=== PATIENT | female | born 1965 | race African-American/Black ===

== ENCOUNTER 2019-01-18 19:03 | Emergency (ER) | payer MEDICAID ==
[~2019-01-18] VITALS: Ht 162.6 cm; Wt 59.0 kg
[2019-01-18] MEDS ORDERED: IBUPROFEN 400MG TABLET PO ONE (20:15)
[2019-01-18 21:02] VITALS: BP 120/82
== END 2019-01-18 21:03 | disposition home or self-care (01) ==
LOC: ER 20:04
DX: S62.396A Other fracture of fifth metacarpal bone, right hand, initial encounter for closed fracture (principal); F17.200 Nicotine dependence, unspecified, uncomplicated; F12.10 Cannabis abuse, uncomplicated; W26.8XXA Contact with other sharp object(s), not elsewhere classified, initial encounter; Y93.89 Activity, other specified; Y92.89 Other specified places as the place of occurrence of the external cause; Y99.8 Other external cause status
CPT/HCPCS: 29125; 73130; 99283; 99406

== ENCOUNTER 2022-03-19 10:15 | Emergency (ER) | payer MEDICAID, OTHER ==
[~2022-03-19] VITALS: Ht 165.1 cm; Wt 60.0 kg
[2022-03-19 16:51] LABS: BASOPHILS % 0.6 % (0.0-2.0); EOSINOPHILS % 3.6 % (0.0-5.0); HEMATOCRIT. 43.1 % (36.0-48.0); HEMOGLOBIN. 14.8 g/dL (12.0-16.0); LYMPHOCYTES % 22.1 % (20.0-50.0); MEAN CORPUSCULAR HEMOGLOBIN 35.3 pg (28.0-32.0); MEAN CORPUSCULAR VOLUME 102.6 fL (81.0-99.0); MEAN PLATELET VOLUME 8.4 fl (7.4-10.4); MONOCYTES % 6.9 % (2.0-8.0); NEUTROPHILS % 66.8 % (40.0-76.0); PLATELET 294 x1000/uL (130-400); RED CELL DISTRIBUTION WIDTH 12.6 % (11.6-14.6)
[2022-03-19 16:54] LABS: CHLORIDE 101 mEq/L (98-107)
[2022-03-19 17:05] LABS: HCG SCREEN NEGATIVE
[2022-03-19 18:38] LABS: CLARITY URINE CLOUDY (CLEAR); COLOR URINE DARK YELLOW (YELLOW); KETONES URINE TRACE (NEGATIVE); LEUKOCYTE ESTERASE URINE 3+ (NEGATIVE); NITRITE URINE NEGATIVE (NEGATIVE); OCCULT BLOOD URINE NEGATIVE (NEGATIVE); PH URINE 5.5 (4.5-8.0); PROTEIN URINE NEGATIVE (NEGATIVE); SPECIFIC GRAVITY URINE 1.013 (1.005-1.030)
[2022-03-19] MEDS ORDERED: MORPHINE SULFATE 4 MG/ML CPJ (NOT FOR IM USE) IV STA (18:40)
[2022-03-19] MEDS ORDERED: ONDANSETRON HCL 4MG/2ML INJ IV STA (18:40)
[2022-03-19] MEDS ORDERED: SODIUM CHLORIDE 0.9% 1,000 ML IV ONE (18:45)
[2022-03-19] MEDS ORDERED: CEFTRIAXONE 1 G PREMIX 50 ML IV ONE (19:15)
[2022-03-19] MEDS ORDERED: SODIUM CHLORIDE 0.9% 1000ML BAG (SEPSIS BOLUS) IV ONE (19:15)
[2022-03-19] MEDS ORDERED: AZITHROMYCIN 500MG/250ML 250 ML IV ONE (19:15)
[2022-03-19] MEDS ORDERED: METRONIDAZOLE 500MG TABLET PO ONE (20:15)
[2022-03-19 20:27] LABS: PARTIAL THROMBOPLASTIN TIME 30.5 sec (23.4-31.0); PROTHROMBIN TIME 11.2 sec (9.6-11.0)
[2022-03-20 01:27] VITALS: BP 112/67
== END 2022-03-20 01:28 | disposition short-term general hospital (02) ==
LOC: ER 10:15 → CANBEDREQ 03-20 07:30
DX: A41.9 Sepsis, unspecified organism (principal); R10.13 Epigastric pain; R07.89 Other chest pain; N39.0 Urinary tract infection, site not specified; F12.10 Cannabis abuse, uncomplicated; Z20.822 Contact with and (suspected) exposure to COVID-19
CPT/HCPCS: 36415; 71045; 74176; 80053; 81003; 83605; 83690; 84484; 84703; 85025; 85610; 85730; 86850; 86900; 86901; 87040; 87086; 87426; 93005; 96361; 96365; 96368; 96375; 99285; C9803; J0696; J2270; J2405; J7030

== ENCOUNTER 2024-02-17 01:00 | Emergency (ER) | payer OTHER ==
[~2024-02-17] VITALS: Ht 170.2 cm; Wt 70.0 kg
[2024-02-17 01:02] VITALS: TEMP 98.3; O2SAT 98
[2024-02-17] MEDS ORDERED: ONDANSETRON HCL 4MG/2ML INJ IV STA (01:06)
[2024-02-17] MEDS ORDERED: MAGNESIUM/ALUMINUM HYDROXIDE/SIMETHICONE 30ML UDC PO STA (01:06)
[2024-02-17] MEDS ORDERED: PANTOPRAZOLE SODIUM 40 MG/VIAL IV STA (01:06)
[2024-02-17 01:35] LABS: HEMATOCRIT. 44.2 % (36.0-48.0); HEMOGLOBIN. 14.8 g/dL (12.0-16.0); MEAN CORPUSCULAR HEMOGLOBIN 31.8 pg (28.0-32.0); MEAN CORPUSCULAR HGB CONC 33.6 g/dL (31.0-37.0); MEAN CORPUSCULAR VOLUME 94.8 fL (81.0-99.0); MEAN PLATELET VOLUME 9.3 fl (7.4-10.4); PLATELET 216 x1000/uL (130-400); RED BLOOD CELL COUNT 4.66 mill/uL (4.2-5.4); RED CELL DISTRIBUTION WIDTH 13.8 % (11.6-14.6); WHITE BLOOD COUNT 10.7 x1000/uL (4.5-11.0)
[2024-02-17 01:37] LABS: DIFFERENTIAL COMMENT 1
[2024-02-17 02:35] LABS: CHLORIDE 109 mEq/L (98-107); POTASSIUM 4.3 mEq/L (3.5-5.1); SODIUM 142 mEq/L (136-145)
[2024-02-17 02:36] LABS: CARBON DIOXIDE 26 mEq/L (21-32)
[2024-02-17 02:37] LABS: CALCIUM 9.7 mg/dL (8.7-10.4)
[2024-02-17 02:41] LABS: CREATININE 0.8 mg/dL (0.6-1.0); GLUCOSE 148 mg/dL (70-105); UREA NITROGEN BLOOD 13 mg/dL (9-23)
[2024-02-17 02:43] LABS: AMYLASE 73 IU/L (30-118)
[2024-02-17 02:45] LABS: ETHANOL BLOOD < 10 mg/dL (<10)
[2024-02-17] MEDS ORDERED: ONDANSETRON HCL 4MG/2ML INJ IV NR (04:15)
[2024-02-17] MEDS ORDERED: PANTOPRAZOLE SODIUM 40 MG/VIAL IV NR (04:15)
[2024-02-17] MEDS ORDERED: MAGNESIUM/ALUMINUM HYDROXIDE/SIMETHICONE 30ML UDC PO NR (04:15)
[2024-02-17] MEDS: SODIUM CHLORIDE 0.9% 1,000 ML IV ONE (05:19)
[2024-02-17 05:29] LABS: PLATELET ESTIMATE NORMAL
[2024-02-17] MEDS ORDERED: IOHEXOL-300 100 ML BOTTLE ONE (06:00)
[2024-02-17] MEDS ORDERED: MORPHINE SULFATE 4 MG/ML INJ (FOR IV/IM USE) IV ONE (06:30)
[2024-02-17] MEDS ORDERED: ONDA4TAB50 MT (07:56)
[2024-02-17] MEDS ORDERED: OMEP40CA20 MT (07:56)
[2024-02-17 11:20] VITALS: BP 122/76; PULSE 70; RESP 16; O2SAT 99
== END 2024-02-17 11:22 | disposition home or self-care (01) ==
LOC: ER 01:21
DX: K85.90 Acute pancreatitis without necrosis or infection, unspecified (principal); F10.20 Alcohol dependence, uncomplicated; I10 Essential (primary) hypertension; F12.90 Cannabis use, unspecified, uncomplicated; Z79.899 Other long term (current) drug therapy; Y90.0 Blood alcohol level of less than 20 mg/100 ml
CPT/HCPCS: 80048; 80320; 82150; 83690; 85025; 85610; 36415; 74177; 93005; 96360; 99284; Q9967; J2405; J2470; J7030; Z7610; G0480

== ENCOUNTER 2024-11-08 19:27 | Emergency (ER) | payer OTHER ==
[~2024-11-08] VITALS: Ht 162.6 cm; Wt 69.0 kg
[~2024-11-08 19:27] MED LIST: OMEP40CA20 MT; ONDA4TAB50 MT
[2024-11-08 19:40] VITALS: O2SAT 100
[2024-11-08 19:58] VITALS: TEMP 37.1
[2024-11-08 21:13] LABS: BASOPHILS % 0.3 % (0.0-2.0); EOSINOPHILS % 0.8 % (0.0-5.0); HEMATOCRIT. 40.0 % (36.0-48.0); HEMOGLOBIN. 13.4 g/dL (12.0-16.0); LYMPHOCYTES % 16.8 % (20.0-50.0); MEAN PLATELET VOLUME 9.4 fl (7.4-10.4); MONOCYTES % 3.6 % (2.0-8.0); NEUTROPHILS % 78.5 % (40.0-76.0); PLATELET 217 x1000/uL (130-400); RED BLOOD CELL COUNT 4.42 mill/uL (4.2-5.4); RED CELL DISTRIBUTION WIDTH 15.5 % (11.6-14.6)
[2024-11-08 21:14] LABS: CLARITY URINE CLEAR (CLEAR); COLOR URINE YELLOW (YELLOW); GLUCOSE URINE NEGATIVE (NEGATIVE); KETONES URINE 3+ (NEGATIVE); NITRITE URINE NEGATIVE (NEGATIVE); OCCULT BLOOD URINE NEGATIVE (NEGATIVE); PH URINE 5.0 (4.5-8.0); PROTEIN URINE NEGATIVE (NEGATIVE); SPECIFIC GRAVITY URINE 1.023 (1.005-1.030)
[2024-11-08 21:15] LABS: LEUKOCYTE ESTERASE URINE 1+ (NEGATIVE); UROBILINOGEN URINE 1.0 E.U./dL (0.2-1.0)
[2024-11-08] MEDS: MORPHINE SULFATE 4 MG/ML INJ (FOR IV/IM USE) IV STA (21:21)
[2024-11-08] MEDS: ONDANSETRON HCL 4MG/2ML INJ IV STA (21:21)
[2024-11-08 21:22] LABS: BACTERIA URINE 1+; RBC URINE 0-2 /hpf (0-2); SQUAMOUS EPITHELIAL CELL URINE FEW /lpf (RARE/1+)
[2024-11-08 21:22] LABS: INR 1.1
[2024-11-08] MEDS: PANTOPRAZOLE SODIUM 40 MG/VIAL IV ONE (21:22)
[2024-11-08 21:26] LABS: CREATININE 0.7 mg/dL (0.6-1.0); UREA NITROGEN BLOOD 10 mg/dL (9-23)
[2024-11-08 21:27] LABS: TROPONIN I HIGH SENSITIVITY < 4 ng/L (3.0-34)
[2024-11-08 21:28] LABS: ASPARTATE AMINOTRANSFERASE 17 IU/L (<34); BILIRUBIN DIRECT 0.2 mg/dL (<=3.0); BILIRUBIN TOTAL 0.6 mg/dL (0.1-1.0); PROTEIN TOTAL 6.9 g/dL (6.0-8.3)
[2024-11-09] MEDS ORDERED: IOHEXOL-350 100 ML BOTTLE ONE (00:59)
[2024-11-09] MEDS ORDERED: MAG-55 MT (02:03)
[2024-11-09] MEDS ORDERED: OMEP40CA20 MT (02:03)
[2024-11-09 02:27] VITALS: BP 113/64; PULSE 70; RESP 18; O2SAT 96
[2024-11-09 12:37] LABS: *AMPHETAMINES SCREEN URINE NEGATIVE (NEGATIVE); *BARBITURATES SCREEN URINE NEGATIVE (NEGATIVE); *BENZODIAZEPINES SCREEN URINE NEGATIVE (NEGATIVE); *COCAINE SCREEN URINE NEGATIVE (NEGATIVE); CANNABINOID URINE SCREEN NEGATIVE (NEGATIVE); ECSTASY MDMA SCREEN URINE NEGATIVE (NEGATIVE); METHADONE URINE SCREEN NEGATIVE (NEGATIVE); OPIATES URINE SCREEN NEGATIVE (NEGATIVE); PHENCYCLIDINE URINE SCREEN NEGATIVE (NEGATIVE)
== END 2024-11-09 03:47 | disposition home or self-care (01) ==
LOC: ER 19:27
DX: K29.70 Gastritis, unspecified, without bleeding (principal); K86.2 Cyst of pancreas; R10.84 Generalized abdominal pain; I10 Essential (primary) hypertension; F17.200 Nicotine dependence, unspecified, uncomplicated; F12.90 Cannabis use, unspecified, uncomplicated; Z86.79 Personal history of other diseases of the circulatory system; Z79.899 Other long term (current) drug therapy
CPT/HCPCS: 80076; 80305; 80048; 81003; 83880; 83690; 85025; 85610; 84484; 36415; 74174; 71275; 93005; 96374; 96375; 99285; J2405; J2470; J2270; Z7610 ×3; Q9967; A4606

== ENCOUNTER 2025-02-14 12:13 | Emergency (ER) | payer OTHER ==
[~2025-02-14] VITALS: Ht 167.6 cm; Wt 75.0 kg
[~2025-02-14 12:13] MED LIST changes: +MAG-55 MT
[2025-02-14 12:16] VITALS: O2SAT 100
[2025-02-14] MEDS: ONDANSETRON 4MG ODT PO ONE ×2 (13:08→16:05)
[2025-02-14 14:21] LABS: BASOPHILS % 0.8 % (0.0-2.0); EOSINOPHILS % 0.2 % (0.0-5.0); HEMATOCRIT. 43.2 % (36.0-48.0); HEMOGLOBIN. 14.5 g/dL (12.0-16.0); LYMPHOCYTES % 14.5 % (20.0-50.0); MEAN PLATELET VOLUME 9.8 fl (7.4-10.4); MONOCYTES % 5.0 % (2.0-8.0); NEUTROPHILS % 79.5 % (40.0-76.0); PLATELET 256 x1000/uL (130-400); RED BLOOD CELL COUNT 4.56 mill/uL (4.2-5.4); RED CELL DISTRIBUTION WIDTH 13.3 % (11.6-14.6)
[2025-02-14 14:35] LABS: CREATININE 0.6 mg/dL (0.6-1.0); UREA NITROGEN BLOOD 6 mg/dL (9-23)
[2025-02-14 14:36] LABS: TROPONIN I HIGH SENSITIVITY 4 ng/L (3.0-34)
[2025-02-14 15:18] LABS: ASPARTATE AMINOTRANSFERASE 13 IU/L (<34); BILIRUBIN DIRECT 0.2 mg/dL (<=3.0); BILIRUBIN TOTAL 0.6 mg/dL (0.1-1.0); PROTEIN TOTAL 7.2 g/dL (6.0-8.3)
[2025-02-14] MEDS ORDERED: ONDA4TAB50 MT (16:55)
[2025-02-14 17:06] VITALS: BP 140/76; PULSE 92; RESP 16; TEMP 37.2; O2SAT 99
== END 2025-02-14 17:08 | disposition home or self-care (01) ==
LOC: ER 12:44
DX: K86.3 Pseudocyst of pancreas (principal); R11.0 Nausea; I10 Essential (primary) hypertension; F10.90 Alcohol use, unspecified, uncomplicated; F12.90 Cannabis use, unspecified, uncomplicated; Z79.899 Other long term (current) drug therapy; Z87.19 Personal history of other diseases of the digestive system; Y90.9 Presence of alcohol in blood, level not specified
CPT/HCPCS: 99285; 74176; 71045; 80076; 80048; 83690; 85025; 84484; 36415; 93005; Q0162